=== PATIENT | female | born 1955 | race Caucasian/White ===

== ENCOUNTER → 2017-04-28 | Outpatient (CLI) | payer OTHER ==
[~2017-04-28] MED LIST: GADOBUTROL 10 ML VIAL IVP ONE; GLUCAGON HCL 1 MG VIAL IV SCH; GLUCAGON HCL IVP SCH
== END ==
LOC: FIMAGING 14:53
PROVIDERS: ATTEND Internal Medicine Gastroenterology
DX: K59.00 Constipation, unspecified (principal)
CPT/HCPCS: A9585; J1610

== ENCOUNTER → 2018-03-12 | Outpatient (CLI) | payer OTHER | LOC: FCPNEURO 20:00 | PROVIDERS: ATTEND Student in an Organized Health Care Education/Training Program | DX: G47.33 Obstructive sleep apnea (adult) (pediatric) (principal) ==